=== PATIENT | female | born 1985 | race Caucasian/White ===

== ENCOUNTER 2023-01-31 17:25 | Inpatient (IN) | payer MEDICAID, OTHER ==
[~2023-01-31] VITALS: Ht 147.3 cm; Wt 45.5 kg
[2023-01-31 19:45] LABS: HEMATOCRIT 41.7 % (36.0-47.0); HEMOGLOBIN 13.5 g/dl (12.0-15.5); MEAN CORPUSCULAR HEMOGLOBIN 29.5 pg (27.0-33.0); MEAN CORPUSCULAR HGB CONC 32.4 g/dl (32.0-36.5); PLATELET COUNT, AUTOMATED 232 10^3/uL (150-450); RED BLOOD COUNT 4.58 10^6/uL (4.00-5.40); WHITE BLOOD COUNT 5.3 10^3/uL (4.0-10.0)
[2023-01-31 20:02] LABS: AMPHETAMINES LEVEL URINE NEGATIVE (NEGATIVE); BARBITURATES URINE NEGATIVE (NEGATIVE); BENZODIAZEPINES URINE NEGATIVE (NEGATIVE); CANNABINOIDS URINE NEGATIVE (NEGATIVE); COCAINE METABOLITE URINE NEGATIVE (NEGATIVE); METHADONE URINE NEGATIVE (NEGATIVE); OPIATES URINE NEGATIVE (NEGATIVE); PHENCYCLIDINE URINE NEGATIVE (NEGATIVE)
[2023-01-31 20:04] LABS: ETHYL ALCOHOL (ETHANOL) < 0.003 % (0.000-0.010)
[2023-01-31 20:06] LABS: ALBUMIN 3.9 G/DL (3.2-5.2); ALKALINE PHOSPHATASE 61 U/L (46-116); ALT/SGPT 17 U/L (7.0-40); AST/SGOT 13 U/L (<34); BILIRUBIN,DIRECT 0.4 MG/DL (<0.4); BILIRUBIN,TOTAL 1.4 MG/DL (0.3-1.2); BLOOD UREA NITROGEN 11 MG/DL (9-23); CALCIUM LEVEL 9.3 MG/DL (8.5-10.1); CARBON DIOXIDE LEVEL 30 MMOL/L (20-31); CHLORIDE LEVEL 104 MMOL/L (98-107); CREATININE FOR GFR 0.88 MG/DL (0.55-1.30); GLOMERULAR FILTRATION RATE > 60.0 (>60); GLUCOSE, FASTING 100 MG/DL (60-100); POTASSIUM SERUM 4.1 MMOL/L (3.5-5.1); SALICYLATE LEVEL < 3.0 MG/DL (<30); SODIUM LEVEL 141 MMOL/L (136-145); TOTAL PROTEIN 6.9 G/DL (5.7-8.2)
[2023-01-31 20:07] LABS: THYROID STIMULATING HORMONE 2.335 uIU/ML (0.55-4.78)
[2023-01-31 20:37] LABS: HCG, SERUM QUALITATIVE NEGATIVE (NEGATIVE)
[2023-01-31] MEDS ORDERED: OLANZapine ORAL DISINTEGRATING TAB 5MG PO PRN (20:50)
[2023-01-31] MEDS ORDERED: MOM 30ML SUSPENSION UDC PO PRN (20:50)
[2023-01-31] MEDS ORDERED: MAALOX 30 ML SUSP *UDC PO PRN (20:50)
[2023-01-31] MEDS ORDERED: traZODone 50 MG TAB PO PRN (20:50)
[2023-01-31] MEDS ORDERED: diphenhydrAMINE 25MG CAP PO PRN (20:50)
[2023-01-31] MEDS ORDERED: NICOTINE 21MG/24HR 1 EA TRANSDERMAL TD PRN (20:50)
[2023-01-31] MEDS ORDERED: ACETAMINOPHEN TAB 650MG DOSE (2X325MG) PO PRN (20:50)
[2023-01-31] MEDS ORDERED: ATIV1TAB10 PO (21:55)
[2023-01-31] MEDS ORDERED: LATU20TA PO (21:55)
[2023-01-31] MEDS ORDERED: HOME MED LIST COMPLETE! XX SCH (21:55)
[2023-01-31 23:26] VITALS: BP 102/56; TEMP 98; O2SAT 97
[2023-02-01 06:23] VITALS: BP 108/55; TEMP 98.8; O2SAT 98
[2023-02-01] MEDS ORDERED: LORazepam 0.5 MG TAB PO PRN (10:30)
[2023-02-01] MEDS: LURASIDONE HCL 40MG TAB (LATUDA) PO SCH (12:58)
[2023-02-01 18:39] VITALS: BP 129/67; TEMP 97.9; O2SAT 96
[2023-02-02 06:03] VITALS: BP 118/55; TEMP 98.4; O2SAT 99
[2023-02-02 07:20] LABS: CHOLESTEROL RISK RATIO 2.7 (<5); HDL CHOLESTEROL 65.7 MG/DL (>40); LDL CHOLESTEROL 103.9 MG/DL (<100); NON-HDL-C 112.3 MG/DL
[2023-02-02] MEDS ORDERED: ONDANSETRON 4MG TAB PO PRN (08:10)
[2023-02-02] MEDS: LURASIDONE HCL 40MG TAB (LATUDA) PO SCH (08:24)
[2023-02-02 16:12] VITALS: BP 129/70; TEMP 98.6; O2SAT 98
[2023-02-03 06:29] VITALS: BP 109/60; TEMP 98.8; O2SAT 99
[2023-02-03] MEDS: LURASIDONE HCL 40MG TAB (LATUDA) PO SCH (08:25)
[2023-02-03 16:12] VITALS: BP 115/76; TEMP 98.2; O2SAT 100
[2023-02-04 06:45] VITALS: BP 133/73; TEMP 98.5; O2SAT 100
[2023-02-04] MEDS: LURASIDONE HCL 40MG TAB (LATUDA) PO SCH (08:17)
[2023-02-04 16:11] VITALS: BP 107/62; TEMP 98.4; O2SAT 99
[2023-02-05 06:34] VITALS: BP 92/57; TEMP 98.7; O2SAT 99
[2023-02-05] MEDS: LURASIDONE HCL 40MG TAB (LATUDA) PO SCH (09:03)
[2023-02-05 19:10] VITALS: BP 123/70; TEMP 98.4; O2SAT 98
[2023-02-06 06:28] VITALS: BP 105/58; TEMP 99; O2SAT 100
[2023-02-06] MEDS: LURASIDONE HCL 40MG TAB (LATUDA) PO SCH (08:28)
[2023-02-06 17:37] VITALS: BP 120/69; TEMP 98.2; O2SAT 100
[2023-02-07 06:08] VITALS: BP 95/53; TEMP 97.1; O2SAT 98
[2023-02-07] MEDS: LURASIDONE HCL 40MG TAB (LATUDA) PO SCH (08:24)
[2023-02-07 18:39] VITALS: BP 120/58; TEMP 98.3; O2SAT 100
[2023-02-08 06:38] VITALS: BP 106/54; TEMP 98.3; O2SAT 100
[2023-02-08] MEDS: LURASIDONE HCL 40MG TAB (LATUDA) PO SCH (08:25)
[2023-02-08] MEDS ORDERED: LATU40TA2 PO ×2 (09:55→14:29)
[2023-02-08] MEDS ORDERED: TRAZ-252 PO (14:29)
== END 2023-02-08 17:33 | disposition home or self-care (01) | DRG 751 ==
LOC: M ED 17:25 → M PSY 20:46 → M ED INP 20:46 → M PSY 21:56
PROVIDERS: ADMIT Student in an Organized Health Care Education/Training Program; ATTEND Student in an Organized Health Care Education/Training Program
DX: F32.3 Major depressive disorder, single episode, severe with psychotic features (principal); R45.851 Suicidal ideations; Z91.52 Personal history of nonsuicidal self-harm; Z62.810 Personal history of physical and sexual abuse in childhood; Z88.8 Allergy status to other drugs, medicaments and biological substances; Z79.899 Other long term (current) drug therapy; Z20.822 Contact with and (suspected) exposure to COVID-19